=== PATIENT | female | born 1990 | race African-American/Black ===

== ENCOUNTER 2020-12-26 11:57 | Emergency (ER) | payer OTHER, SELFPAY ==
[2020-12-26 12:21] VITALS: BP 138/80; PULSE 71; RESP 16; TEMP 36.1; O2SAT 100
--- NOTE | 2020-12-26 13:01 | ED.EAR ---
HPI - Ear Problem General Chief complaint: Ear Stated complaint: Ear Pain Time Seen by Provider: 12/26/20 13:01 Source: patient Mode of arrival: ambulatory Limitations: no limitations History of Present Illness HPI Narrative: Ирина Grewal is a 30 yo female with no PMH who is complaining of muffled hearing in her right ear and has had a headaches and pain when bends over. She denies sticking anything in her ears are having any kind of viral symptoms or fever Related Data Home Medications Medication Instructions Recorded Confirmed medroxyprogesterone 150 mg IM Q3M 12/26/20 12/26/20 Allergies Allergy/AdvReac Type Severity Reaction Status Date / Time No Known Allergies Allergy Unknown Unverified 03/15/19 19:23 Review of Systems Review of Systems: Narrative: CONSTITUTIONAL: Denies fever, chills, sweats. EYES: Denies visual changes, redness, discharge. ENT: Denies rhinorrhea, congestion, sore throat, right otalgia. CARDIOVASCULAR: Denies chest pain, palpitations, edema. RESPIRATORY: Denies dyspnea, wheezing, cough GASTROINTESTINAL: Denies abdominal pain, nausea, vomiting, diarrhea. GENITOURINARY: Denies dysuria, hematuria, abnormal discharge SKIN: Denies rash or itching. NEUROLOGIC: Denies numbness, or focal weakness. PSYCHIATRIC: Denies anxiety or depression. [facility] Past Medical History Medical History (Updated 12/26/20 @ 17:09 by Eveline Díaz CNP) No acute medical problems Family History Family History Father Diabetes mellitus Hypertension Family history of coronary artery disease Social History Social History Smoking status: Never smoker Alcohol intake: never Comments At time of signature, I agree with nursing past medical, surgical, social and family history. There is no relevant family history pertinent to the presenting complaint. Exam Narrative: Exam Narrative: GENERAL: This is a well-nourished, well-developed patient, in mild distress. HEAD: normocephalic, atraumatic. EYES:. Sclera clear/white. Vision is grossly intact. EARS: External ears normal, bilateral cerumen in both ears the right worse than the left, TMs not visualized. Hearing grossly intact. NOSE: External nose normal without nasal discharge, nares without redness, no rhinorrhea. THROAT: Mucous membranes moist, NECK: Neck supple, non-tender CARDIOVASCULAR: Regular rate and rhythm without murmurs, gallops, or rubs. RESPIRATORY: Clear to auscultation. Breath sounds equal bilaterally. No wheezes, rales, or rhonchi. GASTROINTESTINAL: Abdomen soft, non-tender, SKIN: warm, intact with no suspicious lesions or rash, good texture and turgor. NEURO: awake, alert, and oriented to person, place and time. There were no obvious focal neurologic abnormalities. Steady gait EXTREMITIES: Normal range of motion. BACK: Nontender without deformity Course Course Emergency Course: Patient comes with right ear muffling difficulty hearing and has pain in the right ear Are flushed with water and peroxide with -white cotton object removed Started on eardrops Vital Signs Vital signs: Vital Signs Temperature 97.0 F L 12/26/20 12:21 Pulse Rate 71 12/26/20 12:21 Respiratory Rate 16 12/26/20 12:21 Blood Pressure 138/80 12/26/20 12:21 Pulse Oximetry 100 12/26/20 12:21 Temperature 97.0 F L 12/26/20 12:21 Pulse Rate 71 12/26/20 12:21 Respiratory Rate 16 12/26/20 12:21 Blood Pressure 138/80 12/26/20 12:21 Pulse Oximetry 100 12/26/20 12:21 Procedures FB Removal Ear Foreign Body #1: Foreign Body Removal Date: 12/26/20 Foreign Body Removal Time: 13:07 Foreign Body Suspected: other TM intact pre-procedure: yes Foreign Body Removed: yes Foreign Body Removal Technique: irrigation Tympanic Membrane Intact Post Procedure: Yes Complications: none Med
== END 2020-12-26 13:54 | disposition home or self-care (01) ==
PROVIDERS: Emergency Provider Nurse Practitioner
DX: T16.1XXA Foreign body in right ear, initial encounter (principal); X58.XXXA Exposure to other specified factors, initial encounter; H61.23 Impacted cerumen, bilateral
CPT/HCPCS: 99213; A9270; G0463

== ENCOUNTER 2021-08-20 11:39 | Outpatient (CLI) | payer OTHER, SELFPAY ==
--- NOTE | 2021-08-20 11:52 | ECG_ITS ---
Measurements Intervals [place] Rate: 57 P: -31 AK: 122 QRS: 56 QRSD: 95 T: 19 QT: 410 QTc: 400 Interpretive Statements SINUS BRADYCARDIA WITH SINUS ARRHYTHMIA ST ABNORMALITY, LIKELY EARLY REPOLARIZATION POSSIBLE RIGHT VENTRICULAR CONDUCTION DELAY [RSR (QR) IN V1/V2] ABNORMAL ECG NO PREVIOUS ECG AVAILABLE FOR COMPARISON Electronically Signed On 08-20-2021 12:22:24 CDT by Zoran Chao M.D.
== END 2021-08-20 11:40 | disposition home or self-care (01) ==
LOC: ANHIMG 11:43
PROVIDERS: PCP Physician Assistant; Visit Provider Physician Assistant
DX: R07.9 Chest pain, unspecified (principal); R94.31 Abnormal electrocardiogram [ECG] [EKG]
CPT/HCPCS: 93005

== ENCOUNTER 2021-08-23 15:25 | Outpatient (CLI) | payer OTHER, SELFPAY ==
--- NOTE | 2021-08-23 | ECG_ITS ---
Measurements Intervals [place] Rate: 68 P: -44 ME: 129 QRS: 53 QRSD: 97 T: 22 QT: 381 QTc: 408 Interpretive Statements SINUS RHYTHM POSSIBLE RIGHT VENTRICULAR CONDUCTION DELAY [RSR (QR) IN V1/V2] NONSPECIFIC ST ABNORMALITY ABNORMAL ECG Electronically Signed On 08-23-2021 17:15:15 CDT by Zoran Chao M.D.
== END 2021-08-23 15:26 | disposition home or self-care (01) ==
LOC: ANHCARD 15:25
PROVIDERS: PCP Physician Assistant; Visit Provider Physician Assistant
DX: R94.31 Abnormal electrocardiogram [ECG] [EKG] (principal)
CPT/HCPCS: 93005

== ENCOUNTER 2021-09-13 00:14 | Emergency (ER) | payer OTHER, SELFPAY ==
--- NOTE | ~2021-09-13 | CT_ITS ---
EXAMINATION: CT abdomen pelvis wo con DATE: 09/13/2021 01:25 INDICATION: Left flank pain TECHNIQUE: Computed tomography (CT) of the abdomen and pelvis was performed without intravenous contr ast. The dose-length product (DLP) was 956.35 mGy-cm. Automated exposure control and iterative recons truction technique were employed. COMPARISON: 08/08/2016 FINDINGS: Minimal dependent atelectasis is present in the lung bases. The heart size is normal. The g allbladder is surgically absent. The liver, spleen, pancreas, and adrenal glands are normal. The kidn eys are unremarkable. No stones are identified in the kidneys, ureters, or bladder. There is no hydro nephrosis or hydroureter. No pathologically enlarged abdominal or pelvic lymph nodes are identified. There is no free intraperitoneal gas or evidence of bowel obstruction. The appendix is normal. There is a small fat-containing umbilical hernia. IMPRESSION: 1. No CT correlate for the patient's symptoms. Reviewed, dictated and finalized at location A.
[2021-09-13 00:17] VITALS: BP 146/86; PULSE 86; RESP 16; TEMP 36.8; O2SAT 100
--- NOTE | 2021-09-13 00:33 | ED.FEMALEGU ---
HPI - Female Genitourinary General Chief complaint: Urogenital-Female Stated complaint: flank pain Time Seen by Provider: 09/13/21 00:18 Source: patient History of Present Illness HPI Narrative: Patient presents with abdominal pain and flank pain. For she has had diffuse abdominal pain for the past few days associated diarrhea but denies any nausea or vomiting. This morning she woke up with left-sided flank pain that was sharp, intermittent worse with laying on the left side radiates to her abdomen. She denies any chest pain or shortness of breath denies any lightheadedness denies any fevers or cough. She denies any known sick contacts. Reports her urine is foul-smelling but denies increased urinary frequency or hematuria. She denies any vaginal bleeding or discharge Related Data Home Medications Medication Instructions Recorded Confirmed medroxyprogesterone 150 mg IM Q3M 12/26/20 12/26/20 Allergies Allergy/AdvReac Type Severity Reaction Status Date / Time No Known Allergies Allergy Unknown Verified 09/13/21 00:28 Review of Systems Review of Systems: CONSTITUTIONAL: Denies fever, chills, or sweats. EYES: Denies visual changes, redness, or discharge. ENT: Denies rhinorrhea, congestion, sore throat, or otalgia. CARDIOVASCULAR: Denies chest pain, palpitations, or edema. RESPIRATORY: Denies cough or dyspnea. GASTROINTESTINAL: Abdominal pain with diarrhea GENITOURINARY: Denies dysuria or hematuria. SKIN: Denies rash or itching. MUSCULOSKELETAL: Denies back pain, joint pain, or myalgia. NEUROLOGIC: Denies headache, numbness, dizziness, or weakness. PSYCHIATRIC: Denies anxiety or depression. All systems reviewed & are unremarkable except as noted in HPI and below PMFSH Past Medical History Medical History No acute medical problems Family History Family History Father Diabetes mellitus Hypertension Family history of coronary artery disease Social History Social History Smoking status: Never smoker Alcohol intake: never Exam Narrative: GENERAL: Well-appearing, well-nourished, and in no acute distress. HEAD: Normocephalic, atraumatic. EYES: PERRLA and EOMI. ENT: Nares clear, no rhinorrhea or epistaxis. Mucous membranes moist. NECK: Supple. No masses. No JVD ABDOMEN: Soft, nontender, nondistended, normal active bowel sounds. EXTREMITIES: Normal range of motion. No edema. SKIN: Warm, dry, no rash. NEURO: No focal deficits. Alert and oriented x3. PSYCH: Normal mood and affect. Course Reevaluation(s) Reevaluation #1: Patient is resting comfortably results and plan reviewed with patient. Patient is comfortable outpatient plan. Date: 09/13/21 Time: 02:13 Vital Signs Vital signs: Vital Signs Temperature 36.8 C 09/13/21 00:17 Pulse Rate 86 09/13/21 00:17 Respiratory Rate 16 09/13/21 00:17 Blood Pressure 146/86 H 09/13/21 00:17 Pulse Oximetry 100 09/13/21 00:17 Temperature 36.8 C 09/13/21 00:17 Pulse Rate 63 09/13/21 02:26 Respiratory Rate 16 09/13/21 02:26 Blood Pressure 133/68 09/13/21 02:26 Pulse Oximetry 99 09/13/21 02:26 MDM - Female Genitourinary MDM Narrative Medical decision making narrative: H&P as above, vss, pt looks clinically well, exam with nonacute abdomen no CVA tenderness, labs with mild leukocytosis and hematuria, img without acute process, additional labs/img considered, symptomatic relief available as needed, on reevaluation pt continues to looks clinically well. Symptoms remain of unclear etiology may represent early viral syndrome, dns appendicitis, perforation, diverticulitis, ureteral stone, bowel obstruction, patient is PERC negative. plan to tx/monitor as op w/ pcm f/u findings/plan discussed with pt, pt agree/comfortable with plan, return precautions given Lab Data Result jason
[2021-09-13] MEDS: SODIUM CHLORIDE 0.9% IV 1,000 ML 999 ML IV CONT (00:41)
[2021-09-13 00:44] VITALS: BP 134/85; PULSE 74; RESP 18; O2SAT 99
[2021-09-13 00:50] LABS: Appearance Urine Clear (Clear); Bilirubin Urine Negative (Negative); Blood Urine 1+ (Negative); Color Urine Yellow (Yellow); Glucose Urine UA Negative (Negative); Ketones Urine Negative (Negative); Leukocyte Esterase Ur Negative LEU/UL (Negative); Nitrate Urine Negative (Negative); Protein Urine Trace mg/dL (Negative); Specific Grav Ur 1.025 (1.001-1.035); Urobilinogen Urine 0.2 mg/dL (<2.0)
[2021-09-13 00:51] LABS: Basophils Absolute Auto 0.1 K/mm3 (0.0-0.1); Basophils Percent Auto 0.6 % (0.2-1.2); Eosinophils Absolute Auto 0.3 K/mm3 (0-0.3); Eosinophils Percent Auto 2.2 % (0-4.4); Hematocrit 35.7 % (37.0-47.0); Immature Granulocyte Absolute 0.05 K/mm3 (0.00-0.031); Immature Granulocyte Percent A 0.4 % (0-0.5); Lymphocytes Absolute Auto 4.43 K/mm3 (0.9-3.2); Lymphocytes Percent Auto 32.1 % (18.3-44.2); Mean Corpuscular HGB Conc 33.6 g/dl (32-36); Mean Corpuscular Hemoglobin 28.1 pg (26-34); Mean Corpuscular Volume 83.6 fl (80-100); Mean Platelet Volume 10.8 fl (7.4-10.4); Monocytes Absolute Auto 0.9 K/mm3 (0.1-0.6); Monocytes Percent Auto 6.8 % (2.6-8.5); Neutrophils Percent Auto 57.9 % (45.5-73.1); Platelet Count Result 301 k/mm3 (150-375); Red Blood Count 4.27 M/mm3 (4.2-5.4); Red Cell Distribution Width 13.2 % (11.5-14.5); White Blood Count 13.8 K/mm3 (4.5-10.0)
[2021-09-13 00:53] LABS: Mucus Urine Rare /lpf; Squamous Epithelial Cell Urine Occasional /hpf (Few); WBC Urine 0-3 /hpf
[2021-09-13 00:54] LABS: Add Urine Microscopic? NO
[2021-09-13 00:57] LABS: Alanine Aminotransferase 19 U/L (4-35); Albumin Level 4.5 g/dL (3.5-5.1); Alkaline Phosphatase 103 U/L (38-126); Anion Gap 11 mmol/L (8-16); Aspartate Amino Transferase 26 U/L (14-36); Bilirubin,Total 0.5 mg/dL (0.2-1.3); Blood Urea Nitrogen 12 mg/dL (7-17); Calcium 9.4 mg/dL (8.4-10.2); Carbon Dioxide 21 mmol/L (22-30); Chloride 109 mmol/L (98-107); Estimated CRCL calculation 129 ml/min; Estimated Glomerular Filt Rate > 60; Glucose 126 mg/dL (65-110); Lipase 79 U/L (23-300); Potassium 3.7 mmol/L (3.4-5.0); Sodium 141 mmol/L (137-145)
[2021-09-13 02:26] VITALS: BP 133/68; PULSE 63; RESP 16; O2SAT 99
== END 2021-09-13 02:28 | disposition home or self-care (01) ==
PROVIDERS: Emergency Provider Emergency Medicine; PCP Physician Assistant
DX: R10.9 Unspecified abdominal pain (principal); R31.29 Other microscopic hematuria
CPT/HCPCS: 36415; 74176; 80053; 81003; 81025; 83690; 85025; 93225; 93226; 96365; 99284; J0131; J7030

== ENCOUNTER 2021-09-13 14:40 | Outpatient (CLI) | payer OTHER, SELFPAY ==
--- NOTE | 2021-09-16 12:10 | WPDHOLTEREM ---
Holter/Event Monitor Holter/Event Monitor Date of procedure: 09/13/21 Holter/Event Procedure: 48 Hr Holter Monitor Indications: Abnormal EKG/Atrial fib Conclusion: 1. 48 hour holter monitor on 09/13/21. 2. Underlying rhythm is sinus rhythm. HR range 52-158 bpm; 88 bpm. 3. There is 1 premature supraventricular complex. No supraventricular tachycardia. 4. No premature ventricular complex. No ventricular tachycardia. 5. No sinoatrial or atrioventricular blocks. No significant pauses greater than 2 seconds. 6. No symptoms available for correlation.
== END 2021-09-13 14:41 | disposition home or self-care (01) ==
LOC: ANHCARD 14:41
PROVIDERS: PCP Physician Assistant; Visit Provider Physician Assistant
DX: R94.31 Abnormal electrocardiogram [ECG] [EKG] (principal)
CPT/HCPCS: 93225; 93226

== ENCOUNTER 2022-01-27 11:05 | Outpatient (CLI) | payer OTHER, SELFPAY ==
--- NOTE | ~2022-01-27 | XR_ITS ---
EXAMINATION: XR barium swallow DATE: 01/27/2022 11:40 INDICATION: Dysphagia. TECHNIQUE: The patient drank thick barium, gas-producing crystals, and thin barium. Fluoroscopy of th e hypopharynx and esophagus was performed. Fluoroscopy exposure time was 0.4 minutes. The total numbe r of images was 432. The dose-area product was 1.066 Gy-cm^2. COMPARISON: None. FINDINGS: There is no mass or stricture of the esophagus. Esophageal motility is normal. There is no hiatal hernia. IMPRESSION: 1. Normal esophagram. Reviewed, dictated and finalized at location A. IMPRESSION: 1. Normal esophagram.
== END 2022-01-27 11:06 | disposition home or self-care (01) ==
PROVIDERS: PCP Physician Assistant; Visit Provider Physician Assistant
DX: R13.10 Dysphagia, unspecified (principal)
CPT/HCPCS: 74220

== ENCOUNTER 2022-03-27 19:02 | Emergency (ER) | payer OTHER, SELFPAY ==
--- NOTE | ~2022-03-27 | XR_ITS ---
XR sacrum coccyx min 2V DATE: 03/27/2022 19:39 INDICATION: Fall one week ago. Tailbone pain. TECHNIQUE: AP, angled AP and lateral views COMPARISON: None FINDINGS: No apparent fracture or dislocation of the sacrum or coccyx is evident. Normal alignment at the pubic symphysis and sacroiliac joints. IMPRESSION: Negative Reviewed, dictated and finalized at location A. IMPRESSION: Negative
[2022-03-27 19:28] VITALS: BP 130/77; PULSE 92; RESP 16; TEMP 37; O2SAT 100
--- NOTE | 2022-03-27 20:00 | ED.GENADULT ---
HPI - General Adult General Chief complaint: Extremity Injury, Lower Stated complaint: Fall, Butt Pain Time Seen by Provider: 03/27/22 20:17 Source: patient and RN notes reviewed Mode of arrival: ambulatory Limitations: no limitations History of Present Illness HPI narrative: 31-year-old presents with concern for hypoxic pain. Reports 1 week ago she slid down stairs. She reports pain with sitting pain with passing gas, pain with urination. She denies any difficulty with having bowel movements. Denies any loss of bowel function. Denies any perianal anesthesia. She denies weakness in any extremity. She denies any open skin. complaint: Coccyx pain Related Data Home Medications Medication Instructions Recorded Confirmed medroxyprogesterone 150 mg/mL 150 mg IM Q3M 12/26/20 03/27/22 intramuscular suspension Allergies Allergy/AdvReac Type Severity Reaction Status Date / Time No Known Allergies Allergy Unknown Verified 03/27/22 20:13 Review of Systems Review of Systems: CONSTITUTIONAL: Denies malaise, chills, sweats, or fever. CARDIOVASCULAR: Denies chest pain, palpitations, or edema. RESPIRATORY: Denies cough or dyspnea. SKIN: Denies rash or itching, bruising, redness, swelling. MUSCULOSKELETAL: Reports coccygeal pain NEUROLOGIC: Denies numbness, weakness All systems reviewed & are unremarkable except as noted in HPI and below PMFSH Past Medical History Medical History No acute medical problems Family History Family History Father Diabetes mellitus Hypertension Family history of coronary artery disease Social History Social History Smoking status: Never smoker Alcohol intake: never Comments At time of signature, agree with nursing past medical, surgical, social and family history. There is no relevant family history pertinent to the presenting complaint Exam Narrative: GENERAL: Well-appearing, well-nourished, and in no acute distress. HEAD: Normocephalic, atraumatic. EYES: PERRLA and EOMI. NECK: Supple. No lymphadenopathy. CHEST: Clear to auscultation. No respiratory distress. HEART: Regular rate and rhythm. Distal pulses palpable and equal, cap refill <3 seconds MUSCULOSKELETAL: Normal range of motion and strength in all extremities. Normal sensation in dermatomal distributions with sensitivity to light touch and pain. No midline back tenderness to palpation. No paraspinal tenderness. Transfers from lying to sitting to standing. SKIN: Warm, dry, no rash. No ecchymosis, erythema, open wounds to back. No pilonidal cyst noted NEURO: No focal deficits. Alert and oriented x3. PSYCH: Normal mood and affect Course Course Emergency Course: Patient is aware of diagnosis, understands and agrees to treatment plan. Anticipatory guidance given. Patient agrees to follow-up as directed and is aware of reasons to seek care at the emergency department. Portions of this record may have been created with voice recognition software Level of Care: Express Care Visit Vital Signs Vital signs: Vital Signs Temperature 98.6 F 03/27/22 19:28 Pulse Rate 92 03/27/22 19:28 Respiratory Rate 16 03/27/22 19:28 Blood Pressure 130/77 03/27/22 19:28 Pulse Oximetry 100 03/27/22 19:28 Oxygen Delivery Room Air 03/27/22 19:28 Temperature 98.6 F 03/27/22 19:28 Pulse Rate 92 03/27/22 19:28 Respiratory Rate 16 03/27/22 19:28 Blood Pressure 130/77 03/27/22 19:28 Pulse Oximetry 100 03/27/22 19:28 Oxygen Delivery Room Air 03/27/22 19:28 Reviewed. Medical Decision Making MDM Narrative Medical decision making narrative: Exam findings and imaging show no acute concerns or changes; patient is non-toxic appearing and is in no distress. Patient is appropriate for outpatient treatment and follow-up. Vital Signs Vital S
== END 2022-03-27 20:43 | disposition home or self-care (01) ==
PROVIDERS: Emergency Provider Nurse Practitioner; PCP Physician Assistant
DX: S30.0XXA Contusion of lower back and pelvis, initial encounter (principal); W10.9XXA Fall (on) (from) unspecified stairs and steps, initial encounter
CPT/HCPCS: 72220; 99213; G0463

== ENCOUNTER 2022-08-20 04:11 | Emergency (ER) | payer OTHER, SELFPAY ==
--- NOTE | ~2022-08-20 | XR_ITS ---
XR chest 1V portable 08/20/2022 06:50 Indication: Chest pain Procedure: AP portable chest Comparison: 06/23/2008 Findings: Heart size normal. No focal air space disease, pulmonary edema, pleural effusion or suspect ed pneumothorax. Impression: 1: No acute cardiopulmonary disease. Reviewed, dictated and finalized at location A. Impression: 1: No acute cardiopulmonary disease.
[2022-08-20 04:15] VITALS: BP 148/88; PULSE 86; RESP 14; TEMP 36.2; O2SAT 100
[2022-08-20 04:32] LABS: Basophils Absolute Auto 0.1 K/mm3 (0.0-0.1); Basophils Percent Auto 0.8 % (0.2-1.2); Eosinophils Absolute Auto 0.2 K/mm3 (0-0.3); Eosinophils Percent Auto 1.5 % (0-4.4); Hematocrit 37.2 % (37.0-47.0); Hemoglobin 12.6 g/dL (12.0-15.0); Immature Granulocyte Absolute 0.04 K/mm3 (0.00-0.031); Immature Granulocyte Percent A 0.3 % (0-0.5); Lymphocytes Absolute Auto 4.53 K/mm3 (0.9-3.2); Lymphocytes Percent Auto 35.6 % (18.3-44.2); Mean Corpuscular HGB Conc 33.9 g/dl (32-36); Mean Corpuscular Hemoglobin 28.1 pg (26-34); Mean Corpuscular Volume 82.9 fl (80-100); Monocytes Absolute Auto 0.8 K/mm3 (0.1-0.6); Neutrophils Absolute Auto 7.1 K/mm3 (1.3-6.7); Neutrophils Percent Auto 55.8 % (45.5-73.1); Platelet Count Result 292 k/mm3 (150-375); Red Blood Count 4.49 M/mm3 (4.2-5.4); Red Cell Distribution Width 13.5 % (11.5-14.5); White Blood Count 12.7 K/mm3 (4.5-10.0)
[2022-08-20 04:37] LABS: Appearance Urine Cloudy (Clear); Bacteria Urine Rare /hpf; Bilirubin Urine Negative (Negative); Blood Urine 2+ (Negative); Color Urine Yellow (Yellow); Glucose Urine UA Negative (Negative); Ketones Urine Trace mg/dL (Negative); Leukocyte Esterase Ur 1+ LEU/UL (Negative); Nitrate Urine Negative (Negative); Non Pathogenic Casts 0-2; Protein Urine 1+ mg/dL (Negative); Specific Grav Ur 1.025 (1.001-1.035); Squamous Epithelial Cell Urine Moderate /hpf (Few); WBC Urine 21-50 /hpf
[2022-08-20 04:40] LABS: Alanine Aminotransferase 22 U/L (6-35); Albumin Level 4.5 g/dL (3.5-5.1); Alkaline Phosphatase 94 U/L (38-126); Anion Gap 11 mmol/L (8-16); Aspartate Amino Transferase 31 U/L (14-36); Bilirubin,Total 0.8 mg/dL (0.2-1.3); Blood Urea Nitrogen 11 mg/dL (7-17); Calcium 8.8 mg/dL (8.4-10.2); Carbon Dioxide 24 mmol/L (22-30); Chloride 104 mmol/L (98-107); Estimated CRCL calculation 114 ml/min; Estimated Glomerular Filt Rate > 60; Glucose 142 mg/dL (65-110); Lipase 87 U/L (23-300); Potassium 3.7 mmol/L (3.4-5.0); Sodium 139 mmol/L (137-145)
[2022-08-20 04:54] LABS: Add Urine Microscopic? YES
[2022-08-20] MEDS: FAMOTIDINE 20 MG/2 ML VIAL IV PUSH (05:36)
[2022-08-20] MEDS: MAG HYDROX/AL HYDROX/SIMETH 30 ML UDC PO (05:36)
--- NOTE | 2022-08-20 06:19 | ED.GENADULT ---
HPI - General Adult General Chief complaint: Abdominal Pain Stated complaint: abd pain Time Seen by Provider: 08/20/22 04:49 History of Present Illness HPI narrative: This is a 32-year-old female presenting to ED with a chief complaint of left chest wall /flank pain. Patient says that over the last week she has been having pain on the left side of her body. It only occurs at night. She describes it is dull/sharp. It is nonradiating. Nine out 10 intensity. It is worse when she lays on that side. She sleeps on a sofa. She says the pain is so bad that she has to sleep on her back sometimes. the pain is worse when she pushes on it. She is not taking any pain medication. patient denies chest pain, difficulty breathing, fever, chills, nausea, vomiting, diarrhea, constipation, dysuria, urinary urgency or frequency. patient denies vaginal discharge or concern for STDs. Patient does have a history of GERD. Related Data Home Medications Medication Instructions Recorded Confirmed medroxyprogesterone 150 mg/mL 150 mg IM Q3M 12/26/20 03/27/22 intramuscular suspension Allergies Allergy/AdvReac Type Severity Reaction Status Date / Time No Known Allergies Allergy Unknown Verified 08/20/22 04:12 [facility] Past Medical History Medical History No acute medical problems Family History Family History Father Diabetes mellitus Hypertension Family history of coronary artery disease Social History Social History Smoking status: Never smoker Alcohol intake: never Exam Narrative: APPEARANCE: No apparent distress. Head: atraumatic. EYES: EOMI, NOSE: Atraumatic NECK: Trachea midline RESPIRATORY: No increased rate of breathing , clear to auscultation CARDIOVASCULAR: RRR, no peripheral edema ABDOMINAL: soft nontender with no guarding or rebound, extensive pressing on the abdomen to elicit pain was unsuccessful. MUSCULOSKELETAl: No obvious deformities, Unable to elicit any tenderness with extensive pushing on the patient's anterior ribcage where she says her pain usually is. Patient cannot cause the pain to recur either. NEURO: Alert. Moving 4/4 extremities SKIN:: Warm, dry. Normal color PSYCHIATRIC: Normal affect Course Vital Signs Vital signs: Vital Signs Temperature 97.1 F L 08/20/22 04:15 Pulse Rate 86 08/20/22 04:15 Respiratory Rate 14 08/20/22 04:15 Blood Pressure 148/88 H 08/20/22 04:15 Pulse Oximetry 100 08/20/22 04:15 Oxygen Delivery Room Air 08/20/22 04:15 Temperature 97.1 F L 08/20/22 04:15 Pulse Rate 86 08/20/22 04:15 Respiratory Rate 14 08/20/22 04:15 Blood Pressure 148/88 H 08/20/22 04:15 Pulse Oximetry 100 08/20/22 04:15 Oxygen Delivery Room Air 08/20/22 04:15 Medical Decision Making MDM Narrative Medical decision making narrative: -Presentation: 32-year-old presenting with situational pain on her left side when she is sleeping on her sofa. I am unable to elicit any tenderness on exam and neither is the patient. She says that right now she is completely asymptomatic. Lab work was ordered per nursing protocol. -DDX includes but is not limited to: pyelonephritis, gastritis, chest wall pain, musculoskeletal pain -Co-morbidities complicating care: overweight -Social determinants of health: patient works as a aircraft cleaner, lives with boyfriend -External Chart Review: none -Hx from independent Sources: none -Discussion of Management/Consultants: none -Independent interpretation of studies: CBC showed a mildly elevated white blood cell count of 12.7. Hemoglobin is normal. Metabolic panel within normal limits. lipase negative. Urinalysis showed 21-50 white blood cells, 1+ leuk esterase and 2 blood. I discussed these findings with the patient. She is not experiencing urina
[2022-08-20 07:00] VITALS: BP 133/93; PULSE 68; RESP 17; O2SAT 100
== END 2022-08-20 07:03 | disposition home or self-care (01) ==
PROVIDERS: Emergency Provider Emergency Medicine; PCP Physician Assistant
DX: R10.9 Unspecified abdominal pain (principal)
CPT/HCPCS: 36415; 71045; 80053; 81001; 81025; 83690; 85025; 87086; 87088; 96374; 99284; A9270

== ENCOUNTER 2023-02-24 14:46 | Emergency (ER) | payer OTHER, SELFPAY ==
[2023-02-24 15:05] VITALS: BP 141/80; PULSE 77; RESP 14; TEMP 37.2; O2SAT 100
--- NOTE | 2023-02-24 15:28 | ED.GENADULT ---
HPI - General Adult General Chief complaint: Unspecified Stated complaint: lump on left side Time Seen by Provider: 02/24/23 15:28 Source: patient, RN notes reviewed and old records reviewed Mode of arrival: ambulatory Limitations: no limitations History of Present Illness HPI narrative: 32 year old female presents to [facility] with complaints of pain to her to left upper abdomen area described as lump for the past 4 month. Patient reports that she can't sleep on her left side and can't sleep with her left arm raised above her head. Patient denies any known injury, has taken some Ibuprofen for her symptoms without resolution. 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 MD complaint: left upper abdomen tenderness Onset (ago): month(s) (4) Location: abdomen (left upper abdomen) Radiation: non-radiation Quality: aching Pain Consistency: intermittent Exacerbating factors: movement and other (palpation) Treatments prior to arrival: NSAID Related Data Home Medications Medication Instructions Recorded Confirmed medroxyprogesterone 150 mg/mL 150 mg IM Q3M 12/26/20 02/24/23 intramuscular suspension Allergies Allergy/AdvReac Type Severity Reaction Status Date / Time No Known Allergies Allergy Unknown Verified 02/24/23 15:13 Review of Systems Review of Systems: CONSTITUTIONAL: Denies fever, chills, or sweats. EYES: Denies visual changes, redness, or discharge. ENT: Denies rhinorrhea, congestion, sore throat, or otalgia. CARDIOVASCULAR: Denies chest pain, palpitations, or edema. RESPIRATORY: Denies cough or dyspnea, denies any pain with deep breathing or any pain to her back GASTROINTESTINAL: Reports left upper abdominal pain,no nausea, vomiting, or diarrhea. GENITOURINARY: Denies dysuria or hematuria. SKIN: Denies rash or itching. MUSCULOSKELETAL: Denies back pain, joint pain, or myalgia. NEUROLOGIC: Denies headache, numbness, or weakness. PSYCHIATRIC: Denies anxiety or depression. All systems reviewed & are unremarkable except as noted in HPI and below PMFSH Past Medical History Medical History No acute medical problems Family History Family History Father Diabetes mellitus Hypertension Family history of coronary artery disease Social History Social History (Updated 02/25/23 @ 20:53 by Yenifer Martell NP) Smoking status: Never smoker Alcohol intake: never Substance use type: does not use Gender identity (if verbalized by the patient): Female Comments At time of signature, agree with nursing past medical, surgical, social and family history. There is no relevant family history pertinent to the presenting complaint Exam Narrative: GENERAL: Well-appearing, well-nourished, and in no acute distress. HEAD: Normocephalic, atraumatic. EYES: PERRLA and EOMI. ENT: Nares clear, no rhinorrhea or epistaxis. Mucous membranes moist.TM's normal throat pink with no swelling NECK: Supple.no lymphadenopathy CHEST: Clear to auscultation. No respiratory distress.SAO2 100% on room air HEART: Regular rate and rhythm. No murmur heard. Normal peripheral pulses. ABDOMEN: Soft,tender on palpation left upper abdomen and with movement, nondistended, normal active bowel sounds. EXTREMITIES: Normal range of motion. No edema. SKIN: Warm, dry, no rash. NEURO: No focal deficits. Alert and oriented x3. Course Course Emergency Course: Patient is aware of diagnosis, understands and agrees to treatment plan.? Anticipatory guidance given.? Patient agrees to follow-up as directed and is aware of reasons to seek care at the emergency department. Portions of this record may have been created with voice recognition software Level of Care: Express Care Visit Vital Signs Vital signs: Vital Signs Temperature 37.2 C 02/24/23 15:05 Pulse Rate 77
== END 2023-02-24 15:56 | disposition home or self-care (01) ==
PROVIDERS: Emergency Provider Registered Nurse; PCP Physician Assistant
DX: S39.011A Strain of muscle, fascia and tendon of abdomen, initial encounter (principal); X58.XXXA Exposure to other specified factors, initial encounter
CPT/HCPCS: 99213; G0463